=== PATIENT | male | born 1970 | race African-American/Black ===

== ENCOUNTER 2016-09-13 14:15 | Emergency (ER) | payer MEDICAID ==
[~2016-09-13] VITALS: Ht 175.3 cm; Wt 87.0 kg
[2016-09-13] MEDS ORDERED: IBUPROFEN 600MG TABLET PO STA (14:46)
[2016-09-13 15:20] LABS: BASOPHILS % 0.9 % (0.0-2.0); EOSINOPHILS % 2.6 % (0.0-5.0); HEMATOCRIT. 44.4 % (42.0-52.0); LYMPHOCYTES % 39.7 % (20.0-50.0); MEAN CORPUSCULAR HEMOGLOBIN 29.8 pg (28.0-32.0); MEAN CORPUSCULAR HGB CONC 33.8 g/dL (31.0-37.0); MEAN CORPUSCULAR VOLUME 88.2 fL (80.0-94.0); MEAN PLATELET VOLUME 7.3 fl (7.4-10.4); NEUTROPHILS % 46.8 % (40.0-76.0); PLATELET 359 x1000/uL (130-400); RED BLOOD CELL COUNT 5.03 mill/uL (4.7-6.1); RED CELL DISTRIBUTION WIDTH 13.7 % (11.6-14.6); WHITE BLOOD COUNT 6.4 x1000/uL (4.5-11.0)
[2016-09-13 15:26] LABS: CHLORIDE 104 mEq/L (98-107)
[2016-09-13 15:30] LABS: ALBUMIN 3.9 g/dL (3.4-5.0); ANION GAP 13; CALCIUM 9.2 mg/dL (8.5-10.1); CARBON DIOXIDE 29 mEq/L (21-32); INDEX HEMOLYSI 1 (1-3); INDEX ICTERIC 1 (1-4); INDEX LIPEMIC 1 (1-3); UREA NITROGEN BLOOD 15 mg/dL (7-21)
[2016-09-13 15:34] LABS: ALANINE AMINOTRANSFERASE 23 IU/L (13-61); eGFR > 60 mL/min (>60)
[2016-09-13 16:17] VITALS: BP 122/69
== END 2016-09-13 17:17 | disposition home or self-care (01) ==
LOC: ER 14:38
DX: R07.9 Chest pain, unspecified (principal); F12.10 Cannabis abuse, uncomplicated
CPT/HCPCS: 36415; 71010; 80053; 85025; 93005; 99285